=== PATIENT | male | born 1950 | race African-American/Black ===

== ENCOUNTER 2016-12-13 13:02 | Emergency (ER) | payer MEDICAID, OTHER ==
[~2016-12-13] VITALS: Ht 175.3 cm; Wt 60.0 kg
[~2016-12-13 13:02] MED LIST: NOVO7030P2 SQ
[2016-12-13 13:05] VITALS: BP 129/84; PULSE 111; RESP 17; TEMP 97.8; O2SAT 95
== END 2016-12-13 18:11 | disposition left against medical advice (07) ==
LOC: NETRI 13:02
DX: E11.9 Type 2 diabetes mellitus without complications (principal)
CPT/HCPCS: 99281

== ENCOUNTER 2017-04-01 12:52 | Observation (INO) | payer OTHER ==
[~2017-04-01] VITALS: Ht 177.8 cm; Wt 63.0 kg
[2017-04-01 12:54] VITALS: BP 127/71; PULSE 105; RESP 20; TEMP 98.2; O2SAT 100
--- NOTE | 2017-04-01 13:00 | PD ---
Physical Exam Time Seen by Provider: 12:56 Narrative 66 y/o male sent here by towel sewer for evaluation of abdominal pain, occasional left sided chest pain, weakness, decreased appetite for one month. Vital signs reviewed. Seen at triage desk. Awaiting bed placement. Data Data Last Documented VS Vital Signs Date Time Temp Pulse Resp B/P Pulse Ox O2 Delivery O2 Flow Rate FiO2 04/01/17 12:54 98.2 105 20 127/71 100 Room Air [facility] Medical Record Reviewed: Yes Supervised Visit with AMINTA: Justin Morales Apr 01, 2017 13:00
[2017-04-01] MEDS ORDERED: ATOR20TA15 PO (14:12)
[2017-04-01] MEDS ORDERED: NRDRIP ×2 (14:12)
[2017-04-01] MEDS ORDERED: INSU100V2 SQ (14:12)
[2017-04-01] MEDS ORDERED: GABA300C5 PO (14:12)
[2017-04-01] MEDS ORDERED: HYDR-3366 PO (14:12)
[2017-04-01] MEDS ORDERED: BACL10TA PO (14:12)
[2017-04-01] MEDS ORDERED: [UNRECOGNIZED DRUG - REMARK] (14:12)
[2017-04-01] MEDS ORDERED: SODIUM CHLORIDE 0.9% FLUSH 10 ML FLUSH IVF PRN (14:45)
[2017-04-01] MEDS ORDERED: ONDANSETRON HCL 4 MG/2 ML VIAL IV PUSH ONE (14:45)
[2017-04-01] MEDS ORDERED: SODIUM CHLOR 0.9% 1000 ML INJ 1,000 ML IV ONE (14:45)
--- NOTE | 2017-04-01 14:57 | PD ---
HPI Chief Complaint: Abdominal Pain Time Seen by Provider: 13:59 Travel History International Travel<30 days: No Contact w/Intl Traveler<30days: No Traveled to known affect area: No History of Present Illness HPI Patient is a 66-year-old male with history of DM, hyperlipidemia, who was sent to the emergency room by his compatibility test engineer, Dr. Hendricks for evaluation of multiple complaints. As per patient, he has not been feeling well for the past few months. Reports that for the past few months, she has been having increased chest pain. Reports that chest pain feels like a sharp and stabbing pain, reports that the pain goes from his left back and radiates to the front of his chest. Reports that when he has to symptoms, he feels short of breath and diaphoretic. Reports that symptoms last for a few seconds and then resolves on its own. Patient reports that he has not have chest pain at this time, reports that he did have CP a few seconds before I evaluated him. Patient also reports that he has been having abdominal pain for the past few months. Reports that he has been feeling nauseous and has been vomiting intermittently, reports that the pain is located to her lower abdomen. Patient reports that he has had decreased oral intake over the past few months and has been losing weight. Denies any recent travels/trips. PFSH Past Medical History Cardiovascular Problems: Yes (HTN) Congestive Heart Failure: Yes ( ) Diabetes: Yes Patient Takes Glucophage: No Diminished Hearing: No Hypertension: Yes Musculoskeletal: Yes (NEUROPATHY, CHRONIC BACK AND RIGHT KNEE PAIN) Neurologic: Yes (NEUROPATHY) Respiratory: Yes (INFECTION A MONTH AGO) Immunizations Current: Yes Past Surgical History Other Surgery: Yes (VASECTOMY) Social History Alcohol Use: Yes Tobacco Use: No Substance Use: Yes (none since November) Allergies-Medications (Allergen,Severity, Reaction): Coded Allergies: No Known Allergies (Verified , 04/01/17) Reported Meds & Prescriptions Reported Meds & Active Scripts Active Reported [unk prostate] DAILY Novolin R Inj (Insulin Human Regular) 100 Unit/Ml Inj 10 HS Novolin R Inj (Insulin Human Regular) 100 Unit/Ml Inj 20 DAILY Humulin R Inj (Insulin Human Regular) 1,000 Unit/10 Ml Vial Unknown Dose SQ ONCE Gabapentin 300 Mg Cap 300 Mg PO BID [place] (Hydrocodone-Acetaminophen) 10-325 Mg Tab 1 Tab PO Q4H PRN Baclofen 10 Mg Tab 10 Mg PO HS PRN Atorvastatin (Atorvastatin Calcium) 20 Mg Tab 20 Mg PO HS Review of Systems General / Constitutional: No: Fever Eyes: No: Visual changes HENT: No: Headaches Cardiovascular: Positive: Chest Pain or Discomfort, Diaphoresis Respiratory: Positive: Shortness of Breath Gastrointestinal: Positive: Nausea, Vomiting, Abdominal Pain, Loss of Appetite Genitourinary: No: Dysuria Musculoskeletal: No: Pain Skin: No Rash Neurologic: No: Weakness Psychiatric: No: Depression Endocrine: No: Polydipsia Hematologic/Lymphatic: No: Easy Bruising Physical Exam Narrative GENERAL: mild distress SKIN: Focused skin assessment warm/dry. HEAD: Atraumatic. Normocephalic. EYES: Pupils equal and round. No scleral icterus. No injection or drainage. ENT: No nasal bleeding or discharge. Mucous membranes pink and moist. NECK: Trachea midline. No JVD. CARDIOVASCULAR: Regular rate and rhythm. No murmur appreciated. RESPIRATORY: No accessory muscle use. Clear to auscultation. Breath sounds equal bilaterally. GASTROINTESTINAL: Abdomen soft,diffuse abdominal pain, nondistended. Hepatic and splenic margins not palpable. MUSCULOSKELETAL: No obvious deformities. No clubbing. No cyanosis. No edema. NEUROLOGICAL: Awake and alert. No obvious cranial nerve deficits. Motor grossly within normal limits. Normal speech. PSYCHIATRIC: Appropriate mood and affect; insight and judgment normal. Data Data Last Documented VS Vital Signs Date Time Temp Pulse Resp B/P Pulse Ox O2 Delivery O2 Flow Rate FiO2 04/01/17 12:54 98.2 105 20 127/71 100 Room Air Orders Electrocardiogram (04/01/17 14:36) B-Type Natriuretic Peptide (04/01/17 14:36) Ckmb (Isoenzyme) Profile (04/01/17 14:36) Complete Blood Count With Diff (04/01/17 14:36) Comprehensive Metabolic Panel (04/01/17 14:36) Magnesium (Mg) (04/01/17 14:36) Prothrombin Time / Inr (Pt) (04/01/17 14:36) Act Partial Throm Time (Ptt) (04/01/17 14:36) Troponin I (04/01/17 14:36) Lipase (04/01/17 14:36) Chest, Single Ap (04/01/17 14:36) Ecg Monitoring (04/01/17 14:36) Bilateral Bp Monitoring (04/01/17 14:36) Iv Access Insert/Monitor (04/01/17 14:36) Oximetry (04/01/17 14:36) Sodium Chloride 0.9% Flush (Ns Flush) (04/01/17 14:45) Cta Thor Abd Aorta W Iv C W3d (04/01/17 14:36) Sodium Chlor 0.9% 1000 Ml Inj (Ns 1000 M (04/01/17 14:45) Ondansetron Inj (Zofran Inj) (04/01/17 14:45) Labs Laboratory Tests Test 04/01/17 14:50 White Blood Count 10.2 TH/MM3 Red Blood Count 4.38 MIL/MM3 Hemoglobin 13.0 GM/DL Hematocrit 38.2 % Mean Corpuscular Volume 87.1 FL Mean Corpuscular Hemoglobin 29.7 PG Mean Corpuscular Hemoglobin 34.1 % Concent Red Cell Distribution Width 12.4 % Platelet Count 211 TH/MM3 Mean Platelet Volume 8.7 FL Neutrophils (%) (Auto) 63.0 % Lymphocytes (%) (Auto) 27.8 % Monocytes (%) (Auto) 7.7 % Eosinophils (%) (Auto) 0.8 % Basophils (%) (Auto) 0.7 % Neutrophils # (Auto) 6.4 TH/MM3 Lymphocytes # (Auto) 2.8 TH/MM3 Monocytes # (Auto) 0.8 TH/MM3 Eosinophils # (Auto) 0.1 TH/MM3 Basophils # (Auto) 0.1 TH/MM3 CBC Comment DIFF FINAL Differential Comment Prothrombin Time 10.1 SEC Prothromb Time International 0.9 RATIO Ratio Activated Partial 23.2 SEC Thromboplast Time Sodium Level 139 MEQ/L Potassium Level 4.1 MEQ/L Chloride Level 104 MEQ/L Carbon Dioxide Level 30.3 MEQ/L Anion Gap 5 MEQ/L Blood Urea Nitrogen 12 MG/DL Creatinine 0.92 MG/DL Estimat Glomerular Filtration 100 ML/MIN Rate Random Glucose 108 MG/DL Calcium Level 9.5 MG/DL Magnesium Level 2.0 MG/DL Total Bilirubin 0.5 MG/DL Aspartate Amino Transf 19 U/L (AST/SGOT) Alanine Aminotransferase 25 U/L (ALT/SGPT) Alkaline Phosphatase 78 U/L Total Creatine Kinase 88 U/L Troponin I LESS THAN 0.02 NG/ML B-Type Natriuretic Peptide 10 PG/ML Total Protein 7.1 GM/DL Albumin 3.6 GM/DL Lipase 89 U/L MDM Medical Decision Making Medical Screen Exam Complete: Yes Emergency Medical Condition: Yes Interpretation(s) EKG at 1451: NSR at 75bpm, qt/qtc: 389/418, no acute st or t wave changes Vital Signs Date Time Temp Pulse Resp B/P Pulse Ox O2 Delivery O2 Flow Rate FiO2 04/01/17 12:54 98.2 105 20 127/71 100 Room Air Differential Diagnosis Differential includes arrhythmia, ACS, aortic dissection, pe, electrolyte abnormality, tumor, gastroenteritis, gastritis, cholecystitis, appendicitis Narrative Course Patient is a 66-year-old male who was sent to the emergency room for evaluation of multiple complaints. Patient reports that he has been having intermittent chest pain for the past few months, chest pain is sharp and stabbing in nature, patient reports that his chest pain radiates from the back to the front of his left chest. Patient was placed on a cardiac sonographer upon arrival to emergency room. Lab work including cardiac enzymes ordered. X-ray chest ordered. Patient with no chest pain at this time.. We'll monitor. Patient also with abdominal pain for the past few months with decreased by mouth intake. On evaluation, patient has diffuse abdominal pain. Plan to obtain the chest, abdomen and pelvis to evaluate for dissection and to further evaluate abdominal pathology. Plan to give IV hydration and antiemetics this time. care signed out to dr finch at change of shift Claire Braga DO Apr 01, 2017 14:57
[2017-04-01 15:10] LABS: AUTOMATED NEUTROPHIL # 6.4 TH/MM3 (1.8-7.7); BASOPHIL # 0.1 TH/MM3 (0-0.2); BASOPHIL % 0.7 % (0.0-2.0); EOSINOPHIL # 0.1 TH/MM3 (0-0.4); EOSINOPHIL % 0.8 % (0.0-4.0); HEMATOCRIT 38.2 % (39.0-51.0); HEMO FLAGS DIFF FINAL; LYMPH % 27.8 % (9.0-44.0); LYMPHOCYTE # 2.8 TH/MM3 (1.0-4.8); MEAN CELL VOLUME 87.1 FL (80.0-100.0); MEAN CORPUSCULAR HEMOGLOBIN 29.7 PG (27.0-34.0); MEAN CORPUSCULAR HGB CONC 34.1 % (32.0-36.0); MONO % 7.7 % (0.0-8.0); PLATELET COUNT 211 TH/MM3 (150-450); RED BLOOD COUNT 4.38 MIL/MM3 (4.50-5.90); RED CELL DISTRIBUTION WIDTH 12.4 % (11.6-17.2); WHITE BLOOD COUNT 10.2 TH/MM3 (4.0-11.0)
[2017-04-01 15:15] LABS: APTT (PATIENT) 23.2 SEC (24.3-30.1); INTERNATIONAL NORMALIZED RATIO 0.9 RATIO; PROTHROMBIN TIME - PATIENT 10.1 SEC (9.8-11.6)
[2017-04-01 15:28] LABS: ALT (GPT) 25 U/L (12-78); ANION GAP 5 MEQ/L (5-15); AST (GOT) 19 U/L (15-37); BICARBONATE 30.3 MEQ/L (21.0-32.0); BLOOD UREA NITROGEN 12 MG/DL (7-18); CHLORIDE 104 MEQ/L (98-107); GLOMERULAR FILTRATION RATE 100 ML/MIN (>89); POTASSIUM 4.1 MEQ/L (3.5-5.1); SODIUM (NA) 139 MEQ/L (136-145)
[2017-04-01 15:32] LABS: ALKALINE PHOSPHATASE 78 U/L (45-117); TOTAL BILIRUBIN ADULT 0.5 MG/DL (0.2-1.0)
--- NOTE | 2017-04-01 15:37 | RADRPT ---
EXAM DATE/TIME: 04/01/2017 14:35 [facility] COMPARISON: CHEST SINGLE AP, July 29, 2015, 15:27. INDICATIONS : Intermittant chest and abdomen pain. MEDICAL HISTORY : None. SURGICAL HISTORY : None. ENCOUNTER: Initial ACUITY: 2 months PAIN SCORE: 10/10 LOCATION: Bilateral chest FINDINGS: A single view of the chest demonstrates the lungs to be symmetrically aerated without evidence of mas s, infiltrate or effusion. The cardiomediastinal contours are unremarkable. Osseous structures are intact. CONCLUSION: 1. No acute cardiopulmonary disease. Artur Melgar MD on April 01, 2017 at 15:34 Board Certified Radiologist. This report was verified electronically.
[2017-04-01 15:45] LABS: CREATINE KINASE 88 U/L (39-308)
[2017-04-01 17:04] VITALS: BP_SYST 174; BP_SYST 180; BP_DIAS 82; BP_DIAS 90; PULSE 84; RESP 20; O2SAT 100
[2017-04-01] MEDS ORDERED: IOHEXOL 350 MG/ML 10 ML VIAL (for RAD DIAG) IV ONE (17:07)
--- NOTE | 2017-04-01 17:20 | PD ---
Physical Exam Narrative Received sign out from Dr. Braga to follow up CT and if negative, admit to chest pain center for further evaluation of chest pain. 66yo M with PMH of DM here with multiple complaints. Pt with very atypical chest pain that is intermittent and lasts for few seconds at a time. Pt also with diffuse abdominal pain but is stating he is hungry and wants to eat. Pt does not have a airport planner and have not had this chest pain worked up before. CXR negative. CTA showed no aneurysm or dissection. Unremarkable CT chest, abdomen and pelvis. Labs reviewed, no leukocytosis. Troponin negative. BNP 10. Pt given morphine and aspirin. Pt reevaluated at bedside. States abdominal pain has resolved. Abdomen is soft , NT/ND. Pt is requesting food. States chest pain is intermittent and currently does not have any chest pain. Pt to be admitted to chest pain center for serial EKG and cardiac enzymes. Data Data Last Documented VS Vital Signs Date Time Temp Pulse Resp B/P Pulse Ox O2 Delivery O2 Flow Rate FiO2 04/01/17 17:04 84 20 174/90 100 Room Air 180/82 04/01/17 12:54 98.2 Orders Electrocardiogram (04/01/17 14:36) B-Type Natriuretic Peptide (04/01/17 14:36) Ckmb (Isoenzyme) Profile (04/01/17 14:36) Complete Blood Count With Diff (04/01/17 14:36) Comprehensive Metabolic Panel (04/01/17 14:36) Magnesium (Mg) (04/01/17 14:36) Prothrombin Time / Inr (Pt) (04/01/17 14:36) Act Partial Throm Time (Ptt) (04/01/17 14:36) Troponin I (04/01/17 14:36) Lipase (04/01/17 14:36) Chest, Single Ap (04/01/17 14:36) Ecg Monitoring (04/01/17 14:36) Bilateral Bp Monitoring (04/01/17 14:36) Iv Access Insert/Monitor (04/01/17 14:36) Oximetry (04/01/17 14:36) Sodium Chloride 0.9% Flush (Ns Flush) (04/01/17 14:45) Cta Thor Abd Aorta W Iv C W3d (04/01/17 14:36) Sodium Chlor 0.9% 1000 Ml Inj (Ns 1000 M (04/01/17 14:45) Ondansetron Inj (Zofran Inj) (04/01/17 14:45) Iohexol 350 Inj (Omnipaque 350 Inj) (04/01/17 17:07) Aspirin (Aspirin) (04/01/17 18:30) Morphine Inj (Morphine Inj) (04/01/17 18:30) Morphine Inj (Morphine Inj) (04/01/17 18:30) Labs Laboratory Tests Test 04/01/17 14:50 White Blood Count 10.2 TH/MM3 Red Blood Count 4.38 MIL/MM3 Hemoglobin 13.0 GM/DL Hematocrit 38.2 % Mean Corpuscular Volume 87.1 FL Mean Corpuscular Hemoglobin 29.7 PG Mean Corpuscular Hemoglobin 34.1 % Concent Red Cell Distribution Width 12.4 % Platelet Count 211 TH/MM3 Mean Platelet Volume 8.7 FL Neutrophils (%) (Auto) 63.0 % Lymphocytes (%) (Auto) 27.8 % Monocytes (%) (Auto) 7.7 % Eosinophils (%) (Auto) 0.8 % Basophils (%) (Auto) 0.7 % Neutrophils # (Auto) 6.4 TH/MM3 Lymphocytes # (Auto) 2.8 TH/MM3 Monocytes # (Auto) 0.8 TH/MM3 Eosinophils # (Auto) 0.1 TH/MM3 Basophils # (Auto) 0.1 TH/MM3 CBC Comment DIFF FINAL Differential Comment Prothrombin Time 10.1 SEC Prothromb Time International 0.9 RATIO Ratio Activated Partial 23.2 SEC Thromboplast Time Sodium Level 139 MEQ/L Potassium Level 4.1 MEQ/L Chloride Level 104 MEQ/L Carbon Dioxide Level 30.3 MEQ/L Anion Gap 5 MEQ/L Blood Urea Nitrogen 12 MG/DL Creatinine 0.92 MG/DL Estimat Glomerular Filtration 100 ML/MIN Rate Random Glucose 108 MG/DL Calcium Level 9.5 MG/DL Magnesium Level 2.0 MG/DL Total Bilirubin 0.5 MG/DL Aspartate Amino Transf 19 U/L (AST/SGOT) Alanine Aminotransferase 25 U/L (ALT/SGPT) Alkaline Phosphatase 78 U/L Total Creatine Kinase 88 U/L Troponin I LESS THAN 0.02 NG/ML B-Type Natriuretic Peptide 10 PG/ML Total Protein 7.1 GM/DL Albumin 3.6 GM/DL Lipase 89 U/L [facility] Supervised Visit with AMINTA: No Diagnosis Primary Impression: Chest pain Qualified Code: R07.9 - Chest pain, unspecified type Admitting Information Admitting Physician Requests: Mitzy Ríos DO Apr 01, 2017 17:20
--- NOTE | 2017-04-01 17:28 | RADRPT ---
EXAM DATE/TIME: 04/01/2017 16:46 [facility] COMPARISON: No previous studies available for comparison. INDICATIONS : Left sided chest pain, evaluate for aortic dissection. IV CONTRAST: 78 cc Omnipaque 350 (iohexol) IV RADIATION DOSE: 22.30 CTDIvol (mGy) MEDICAL HISTORY : Cardiovascular disease. Diabetes mellitus type 1. Hypertension. SURGICAL HISTORY : None. ENCOUNTER: Initial ACUITY: 2 days PAIN SCALE: 6/10 LOCATION: Left chest TECHNIQUE: Volumetric scanning was performed using a multi-row detector CT scanner. The data was post processed with a variety of visualization algorithms including full volume maximum intensity projection, multi -planar sliding thin slab reformation, curved planar reformation, and surface rendering techniques. Using automated exposure control and adjustment of the mA and/or kV according to patient size, radiat ion dose was kept as low as reasonably achievable to obtain optimal diagnostic quality images. DICOM format image data is available electronically for review and comparison. FINDINGS: LUNGS: There is no consolidation or pneumothorax. No concerning pulmonary nodule is visualized. No pleural fluid is present. MEDIASTINUM: No abnormally enlarged lymph nodes by CT criteria. No axillary or hilar abnormalities are identified. ABDOMEN: The liver and spleen are free of focal defects. The gallbladder and pancreas demonstrate no abnormali ty. The adrenal glands are normal. The kidneys demonstrate no evidence of solid renal mass or hydrone phrosis. No free fluid or abdominal masses are identified. No para-aortic adenopathy is seen. PELVIS: No evidence of free fluid or pelvic mass. No abnormally enlarged inguinal or retroperitoneal lymph no marley are present. The bladder is unremarkable. THORACIC AORTA: Thoracic aorta is normal in caliber without evidence for dissection or aneurysm. There is a variant a [facility] anatomy with direct origin of the left vertebral artery from the aorta. The central pulmonary art eries are patent. ABDOMINAL AORTA: The aorta is normal in caliber without aneurysm or dissection. The renal arteries are patent bilater ally. The proximal celiac and superior mesenteric arteries are patent and normal in diameter. Ther e is variant anatomy with right hepatic artery arising from the SMA. PELVIC VESSELS: The internal iliac and external iliac vessels are patent without aneurysm or stenosis. CONCLUSION: 1. Normal caliber aorta without evidence for aneurysm or dissection as questioned. 2. Patent central pulmonary arteries. 3. Unremarkable CT examination of the chest, abdomen, and pelvis. Artur Melgar MD on April 01, 2017 at 17:19 Board Certified Radiologist. This report was verified electronically.
[2017-04-01] MEDS ORDERED: MORPHINE SULFATE 8 MG/ML INJ IV PUSH ONE (18:30)
[2017-04-01] MEDS ORDERED: MORPHINE SULFATE 4 MG/ML INJ IV PUSH ONE (18:30)
[2017-04-01] MEDS ORDERED: ASPIRIN 325 MG TAB PO ONE (18:30)
[2017-04-01 19:52] VITALS: BP 161/92; PULSE 83; RESP 20; O2SAT 100; O2SAT 99
[2017-04-01 20:50] VITALS: BP 162/99; PULSE 83; RESP 18; TEMP 98.6; O2SAT 100
[2017-04-01 20:55] LABS: CREATINE KINASE 84 U/L (39-308)
[2017-04-01] MEDS: SODIUM CHLORIDE 0.9% FLUSH 10 ML FLUSH IV FLUSH SCH (21:37)
[2017-04-01] MEDS: SODIUM CHLORIDE 0.9% FLUSH 10 ML FLUSH IV FLUSH PRN ×2 (21:38→23:27)
[2017-04-01] MEDS ORDERED: ACETAMINOPHEN 500 MG CPLT PO PRN (23:30)
[2017-04-01] MEDS ORDERED: ONDANSETRON HCL 4 MG/2 ML VIAL IV PRN (23:30)
[2017-04-01] MEDS ORDERED: MORPHINE SULFATE 8 MG/ML INJ IV PUSH PRN (23:30)
[2017-04-01 23:40] VITALS: PULSE 88
[2017-04-01 23:59] LABS: CREATINE KINASE 86 U/L (39-308)
[2017-04-02 01:06] VITALS: BP 148/74; PULSE 83; RESP 17; TEMP 98.5; O2SAT 99
[2017-04-02 05:21] VITALS: BP 166/92; PULSE 90; RESP 17; TEMP 97.9; O2SAT 100
[2017-04-02 07:51] VITALS: BP 149/95; PULSE 88; RESP 18; TEMP 97.4; O2SAT 100
[2017-04-02] MEDS ORDERED: cloNIDine HCL 0.1 MG TAB PO PRN (08:00)
[2017-04-02] MEDS ORDERED: BACLOFEN 10 MG TAB PO PRN (08:00)
[2017-04-02] MEDS ORDERED: ACETAMINOPHEN/HYDROcodone 325 MG/10 MG TAB PO PRN (08:00)
[2017-04-02] MEDS: SODIUM CHLORIDE 0.9% FLUSH 10 ML FLUSH IV FLUSH SCH (08:19)
[2017-04-02] MEDS ORDERED: GABAPENTIN 300 MG CAP PO SCH (09:00)
[2017-04-02] MEDS ORDERED: DEXTROSE 50% IN WATER 50 ML VIAL(D50) IV PRN (09:00)
[2017-04-02] MEDS ORDERED: GLUCAGON 1 MG/ML VIAL IM/SQ PRN (09:00)
--- NOTE | 2017-04-02 09:05 | TR ---
Date Performed: 04/02/2017 Time Performed: 08:33:24 DOCTOR: Gera Lamar DRUG LIST: CLINICAL HISTORY: CHEST PAIN REASON FOR TEST: REASON FOR ENDING: OBSERVATION: CONCLUSION: SHRAVAN PROTOCOL ETT. NO CP OR SOB. TEST STOPPED AFTER EXCEEDING GOAL HR SECONDARY TO CHRONIC BACK PAIN.Maximum UB=107 % Max HR Achieved=95.0% Maximum IM=357/84 Total Exercise Time=6:12 COMMENTS: Conclusion: Normal treadmill exercise. No evidence of ischemia.
--- NOTE | 2017-04-02 09:15 | HHI.HP ---
[facility] Primary Care Physician Salvador Cabezas MD Chief Complaint Chest pain History of Present Illness This is a 66-year-old male that presents to the ED via private vehicle complaining of chest pain, abdominal pain, and low back pain. His chest abdominal pain he states been intermittent for 2 months. When it occurs it last about 20 seconds. He times little short of breath, nauseous, diaphoretic but states that it is rare. He saw nothing to bring on the discomforts. He states he works out at the gym twice a week lifting weights and also doing the treadmill and never has a discomfort while doing that. He states he walks daily for at least a mild to 2 miles without any issues. He states he abdominal pain in the chest pain feels similar to his neuropathy feels in his legs. Denies prior cardiac workup. Denies recent illness. Review of Systems General: Patient denies fevers, chills recent, and recent travel HEENT: Patient denies headache, sore throat, difficulty swallowing. Cardiovascular: Has the chest discomfort as mentioned above. Denies sensation of heart beating rapidly or irregularly. No syncope. Occasional diaphoresis. Respiratory: Occasional shortness of breath. Denies inspirational chest discomfort. Denies coughing wheezing or hemoptysis. GI: Occasional nausea. Complains of a generalized abdominal pain that feels like a neuropathy that he gets in his legs. Patient denies vomiting, diarrhea, and bloody stools. Musculoskeletal: Patient denies joint pain or edema. Denies calf pain or edema. Complains of chronic low back pain. Neurovascular: Patient denies numbness, tingling, weakness in extremities. Denies headache. Endocrine: Denies polyuria and polydipsia. Hematologic: Denies easy bruising. Skin: Denies rash or itching. Past Family Social History Allergies: Coded Allergies: No Known Allergies (Verified , 04/01/17) Past Medical History Diabetes, hyperlipidemia, neuropathy in his legs, chronic back pain. History of substance abuse but states he's been sober of alcohol and cocaine 3 months. Denies hypertension and known CAD. Past Surgical History Noncontributory. Reported Medications Reported Meds & Active Scripts Active Reported [unk prostate] DAILY Novolin R Inj (Insulin Human Regular) 100 Unit/Ml Inj 10 HS Novolin R Inj (Insulin Human Regular) 100 Unit/Ml Inj 20 DAILY Humulin R Inj (Insulin Human Regular) 1,000 Unit/10 Ml Vial Unknown Dose SQ ONCE Gabapentin 300 Mg Cap 300 Mg PO BID [place] (Hydrocodone-Acetaminophen) 10-325 Mg Tab 1 Tab PO Q4H PRN Baclofen 10 Mg Tab 10 Mg PO HS PRN Atorvastatin (Atorvastatin Calcium) 20 Mg Tab 20 Mg PO HS Active Ordered Medications Current Medications Medications (Trade) Dose Ordered Sig/Esteban Route Start Time Stop Time Status Last Admin (NS Flush) 2 ml UNSCH PRN IV FLUSH 04/01/17 19:00 04/01/17 23:27 (NS Flush) 2 ml BID IV FLUSH 04/01/17 21:00 04/02/17 08:19 (Tylenol) 500 mg Q4H PRN PO 04/01/17 23:30 (Zofran Inj) 4 mg Q6H PRN IV 04/01/17 23:30 (Morphine Inj) 2 mg Q4H PRN IV PUSH 04/01/17 23:30 04/01/17 23:26 (Catapres) 0.1 mg Q4H PRN PO 04/02/17 08:00 04/02/17 08:18 (Lipitor) 20 mg HS PO 04/02/17 21:00 (Lioresal) 10 mg HS PRN PO 04/02/17 08:00 (Neurontin) 300 mg BID PO 04/02/17 09:00 ([place] 10-325 Mg) 1 tab Q4H PRN PO 04/02/17 08:00 (D50w (Vial) Inj) 25 ml UNSCH PRN IV 04/02/17 09:00 (Glucagon Inj) 1 mg UNSCH PRN IM/SQ 04/02/17 09:00 Family History Denies family history of CAD. Social History Patient quit smoking 3 months ago but prior that he smoked one pack of cigarettes daily for 10 years. He states he's had no alcohol or cocaine in 3 months. Physical Exam Vital Signs Vital Signs Date Time Temp Pulse Resp B/P Pulse Ox O2 Delivery O2 Flow Rate FiO2 04/02/17 07:51 97.4 88 18 149/95 100 04/02/17 05:21 97.9 90 17 166/92 100 04/02/17 01:06 98.5 83 17 148/74 99 04/01/17 23:40 88 04/01/17 20:50 98.6 83 18 162/99 100 04/01/17 19:52 99 21 04/01/17 19:52 83 20 161/92 100 04/01/17 17:04 84 20 174/90 100 Room Air 180/82 04/01/17 12:54 98.2 105 20 127/71 100 Room Air Physical Exam GENERAL: This is a well-nourished, well-developed patient, in no apparent distress. Patient speaks in clear complete sentences. Patient is pleasant. HEENT: Head is atraumatic and normocephalic. Neck is supple without lymphadenopathy and trachea is midline. No JVD or carotid bruits. CARDIOVASCULAR: Regular rate and rhythm without murmurs, gallops, or rubs. RESPIRATORY: Clear to auscultation. Breath sounds equal bilaterally. No wheezes , rales, or rhonchi. Chest wall is tender reproducing the discomfort he has been having. No use of accessory muscles. GASTROINTESTINAL: Abdomen is nontender, nondistended. Abdomen soft. No obvious pulsatile mass or bruit. No CVA tenderness. Strong femoral pulses bilaterally. Normal bowel sounds in all quadrants. MUSCULOSKELETAL: Patient is moving upper and lower extremities freely. No calf tenderness or edema, no Homans sign. Strong pulses in upper and lower extremities. NEUROLOGICAL: Patient is alert and oriented. Cranial nerves 2-12 are grossly intact. No focal deficits and speech is clear. SKIN: No rash and turgor is normal. Laboratory Laboratory Tests Test 04/01/17 04/01/17 04/01/17 14:50 19:28 22:45 White Blood Count 10.2 Red Blood Count 4.38 Hemoglobin 13.0 Hematocrit 38.2 Mean Corpuscular Volume 87.1 Mean Corpuscular Hemoglobin 29.7 Mean Corpuscular Hemoglobin 34.1 Concent Red Cell Distribution Width 12.4 Platelet Count 211 Mean Platelet Volume 8.7 Neutrophils (%) (Auto) 63.0 Lymphocytes (%) (Auto) 27.8 Monocytes (%) (Auto) 7.7 Eosinophils (%) (Auto) 0.8 Basophils (%) (Auto) 0.7 Neutrophils # (Auto) 6.4 Lymphocytes # (Auto) 2.8 Monocytes # (Auto) 0.8 Eosinophils # (Auto) 0.1 Basophils # (Auto) 0.1 CBC Comment DIFF FINAL Differential Comment Prothrombin Time 10.1 Prothromb Time International 0.9 Ratio Activated Partial 23.2 Thromboplast Time Sodium Level 139 Potassium Level 4.1 Chloride Level 104 Carbon Dioxide Level 30.3 Anion Gap 5 Blood Urea Nitrogen 12 Creatinine 0.92 Estimat Glomerular Filtration 100 Rate Random Glucose 108 Calcium Level 9.5 Magnesium Level 2.0 Total Bilirubin 0.5 Aspartate Amino Transf 19 (AST/SGOT) Alanine Aminotransferase 25 (ALT/SGPT) Alkaline Phosphatase 78 Total Creatine Kinase 88 84 86 Troponin I LESS THAN 0.02 LESS THAN 0.02 LESS THAN 0.02 B-Type Natriuretic Peptide 10 Total Protein 7.1 Albumin 3.6 Lipase 89 Result Diagram: 04/01/17 1450 04/01/17 1450 Imaging Last Impressions Chest X-Ray 04/01/[id number] Signed Impressions: Service Date/Time: Saturday, April 01, 2017 14:35 - CONCLUSION: 1. No acute cardiopulmonary disease. Artur Melgar MD Aorta CTA [id number]/01/[id number] Signed Impressions: Service Date/Time: Saturday, April 01, 2017 16:46 - CONCLUSION: 1. Normal caliber aorta without evidence for aneurysm or dissection as questioned. 2. Patent central pulmonary arteries. 3. Unremarkable CT examination of the chest, abdomen, and pelvis. Artur Melgar MD Course EKGs have been sinus rhythm without significant ST segment depressions or elevations. Assessment and Plan Assessment and Plan * Atypical chest pain: Patient has had serial cardiac enzymes and EKGs for ruling out purposes. He has been seen by Dr. Lamar of cardiology in the chest pain center. He underwent a Trevor protocol ETT that was nonischemic and he will not be discharged home with instructions to follow-up with his primary care physician. * Diabetes: Continue his medications. Follow diabetic diet. We will add lisinopril as he has not been on an JOURDAN inhibitor. * Hyperlipidemia: Continue current medication. * Neuropathy: Continue current medication. * Can't back pain: Continue current medication. Patient is stable at this time. He is agreeable to this plan. Iban Archibald Apr 02, 2017 09:15
[2017-04-02] MEDS ORDERED: LISI-519 PO (09:16)
--- NOTE | 2017-04-02 09:16 | PD.CARD.PN ---
Subjective Subjective Remarks CARDIOLOGY ATTENDING NOTE S: 66 y/o male with hx of atypical CP, back pain, DM, neuropathy and past hx of tobacco and cocaine (clear now 3 mo) CP very atypical and not likely cardiac. O: Neck no JVD, mass or bruit Chest decreased BS but clear CV RSR without GRM EKGs negative for acute ischemia ETT negative A: Non cardiac CP DM Neuropathy P: Disch to FU with PCP Objective Vital Signs / I&O Vital Signs Date Time Temp Pulse Resp B/P Pulse Ox O2 Delivery O2 Flow Rate FiO2 04/02/17 07:51 97.4 88 18 149/95 100 04/02/17 05:21 97.9 90 17 166/92 100 04/02/17 01:06 98.5 83 17 148/74 99 04/01/17 23:40 88 04/01/17 20:50 98.6 83 18 162/99 100 04/01/17 19:52 99 21 04/01/17 19:52 83 20 161/92 100 04/01/17 17:04 84 20 174/90 100 Room Air 180/82 04/01/17 12:54 98.2 105 20 127/71 100 Room Air Laboratory Laboratory Tests Test 04/01/17 04/01/17 04/01/17 14:50 19:28 22:45 White Blood Count 10.2 TH/MM3 Red Blood Count 4.38 MIL/MM3 Hemoglobin 13.0 GM/DL Hematocrit 38.2 % Mean Corpuscular Volume 87.1 FL Mean Corpuscular Hemoglobin 29.7 PG Mean Corpuscular Hemoglobin 34.1 % Concent Red Cell Distribution Width 12.4 % Platelet Count 211 TH/MM3 Mean Platelet Volume 8.7 FL Neutrophils (%) (Auto) 63.0 % Lymphocytes (%) (Auto) 27.8 % Monocytes (%) (Auto) 7.7 % Eosinophils (%) (Auto) 0.8 % Basophils (%) (Auto) 0.7 % Neutrophils # (Auto) 6.4 TH/MM3 Lymphocytes # (Auto) 2.8 TH/MM3 Monocytes # (Auto) 0.8 TH/MM3 Eosinophils # (Auto) 0.1 TH/MM3 Basophils # (Auto) 0.1 TH/MM3 CBC Comment DIFF FINAL Differential Comment Prothrombin Time 10.1 SEC Prothromb Time International 0.9 RATIO Ratio Activated Partial 23.2 SEC Thromboplast Time Sodium Level 139 MEQ/L Potassium Level 4.1 MEQ/L Chloride Level 104 MEQ/L Carbon Dioxide Level 30.3 MEQ/L Anion Gap 5 MEQ/L Blood Urea Nitrogen 12 MG/DL Creatinine 0.92 MG/DL Estimat Glomerular Filtration 100 ML/MIN Rate Random Glucose 108 MG/DL Calcium Level 9.5 MG/DL Magnesium Level 2.0 MG/DL Total Bilirubin 0.5 MG/DL Aspartate Amino Transf 19 U/L (AST/SGOT) Alanine Aminotransferase 25 U/L (ALT/SGPT) Alkaline Phosphatase 78 U/L Total Creatine Kinase 88 U/L 84 U/L 86 U/L Troponin I LESS THAN 0.02 LESS THAN 0.02 LESS THAN 0.02 NG/ML NG/ML NG/ML B-Type Natriuretic Peptide 10 PG/ML Total Protein 7.1 GM/DL Albumin 3.6 GM/DL Lipase 89 U/L Gera Lamar MD Apr 02, 2017 09:16
--- NOTE | 2017-04-02 09:17 | HHI.DCPOC ---
Discharge Care Plan Diagnosis: (1) Chest pain, atypical (2) DM (diabetes mellitus) (3) Hyperlipidemia (4) Neuropathy (5) Chronic back pain Goals to Promote Your Health * To prevent worsening of your condition and complications * To maintain your health at the optimal level Directions to Meet Your Goals Take your medications as prescribed Follow your dietary instruction Follow activity as directed Keep your appointments as scheduled Take your immunizations and boosters as scheduled If your symptoms worsen call your PCP, if no PCP go to Urgent Care Center or Emergency Room Smoking is Dangerous to Your Health. Avoid second hand smoke Call the 24-hour hour crisis hotline for domestic abuse at [facility] Archibald Apr 02, 2017 09:17
[2017-04-02] MEDS ORDERED: INSULIN ASPART SUPPLEMENTAL SCALE SQ SCH (11:00)
--- NOTE | 2017-04-02 15:29 | EKG ---
Date Performed: 04/01/2017 Time Performed: 22:51:24 PTAGE: 66 years EKG: Sinus rhythm MARKED LEFT AXIS DEVIATION PATTERN CONSISTENT WITH PULMONARY DISEASE ABNORMAL ECG NO SIG CHANGE PREVIOUS TRACING : 04/01/2017 19.22 DOCTOR: Gera Lamar Interpretating Date/Time 04/02/2017 15:28:19
--- NOTE | 2017-04-02 15:32 | EKG ---
Date Performed: 04/01/2017 Time Performed: 14:51:59 PTAGE: 66 years EKG: Sinus rhythm MARKED LEFT AXIS DEVIATION PATTERN CONSISTENT WITH PULMONARY DISEASE ABNORMAL ECG PREVIOUS TRACING : 05/11/2016 23.00 DOCTOR: Gera Lamar Interpretating Date/Time 04/02/2017 15:30:28
--- NOTE | 2017-04-02 15:32 | EKG ---
Date Performed: 04/01/2017 Time Performed: 19:22:28 PTAGE: 66 years EKG: Sinus rhythm MARKED LEFT AXIS DEVIATION PATTERN CONSISTENT WITH PULMONARY DISEASE ABNORMAL ECG NO SIG CHANGE PREVIOUS TRACING : 04/01/2017 14.51 DOCTOR: Gera Lamar Interpretating Date/Time 04/02/2017 15:31:07
[2017-04-02] MEDS ORDERED: ATORVASTATIN 20 MG TAB PO SCH (21:00)
== END 2017-04-02 09:47 | disposition home or self-care (01) ==
LOC: NEPD 12:52 → NEDA 18:52 → NEPHCDU 20:03
PROVIDERS: ADMIT Internal Medicine Cardiovascular Disease; ATTEND Internal Medicine Cardiovascular Disease
DX: R07.89 Other chest pain (principal); E11.9 Type 2 diabetes mellitus without complications; E78.5 Hyperlipidemia, unspecified; G62.9 Polyneuropathy, unspecified; M54.9 Dorsalgia, unspecified; M54.5 Low back pain; R10.9 Unspecified abdominal pain; R94.31 Abnormal electrocardiogram [ECG] [EKG]; Z79.4 Long term (current) use of insulin; Z79.899 Other long term (current) drug therapy
CPT/HCPCS: 71010; 71275; 74174; 80053; 82550; 83690; 83735; 83880; 84484; 85025; 85610; 85730; 93005; 93017; 96361; 96374; 96375; 99285; G0378; J2270; J2405; J7030; Q9967

== ENCOUNTER 2017-04-19 07:19 | Emergency (ER) | payer OTHER ==
[~2017-04-19] VITALS: Ht 177.8 cm; Wt 65.0 kg
[~2017-04-19 07:19] MED LIST changes: +ATOR20TA15 PO; +BACL10TA PO; +GABA300C5 PO; +HYDR-3366 PO; +INSU100V2 SQ; +LISI-519 PO; -NOVO7030P2 SQ; +NRDRIP; +[UNRECOGNIZED DRUG - REMARK]
[2017-04-19 07:20] VITALS: BP 160/99; PULSE 99; RESP 18; TEMP 98.5; O2SAT 100
--- NOTE | 2017-04-19 07:52 | PD ---
HPI Chief Complaint: Chest Pain Time Seen by Provider: 07:31 Travel History International Travel<30 days: No Contact w/Intl Traveler<30days: No Traveled to known affect area: No History of Present Illness HPI 66yo M with PMH of DM, chronic back pain on narco, follows with Dr. Espinal from pain management here with c/o left sided chest pain for months. Pt states pain is sharp and on exam, is more left ribs. Denies any sob, fever, n/v, abdominal pain, focal weakness or numbness. Pt states he did not take his narco today because he was rushing out of the house. Pt was just admitted in chest pain center and seen by jammer operator Dr. Lamar for atypical chest pain on 04/01/17. Had cardiac stress test and negative CT angio. Pt uses a cane because of his back pain. Denies any recent cocaine use. States he has followed up with PMD and is scheduling for outpatient cardiology work up. PFSH Past Medical History Heart Rhythm Problems: No Cardiac Catheterization: No Cardiovascular Problems: Yes (HTN) High Cholesterol: Yes Congestive Heart Failure: No Diabetes: Yes Patient Takes Glucophage: No Diminished Hearing: No Hypertension: Yes Musculoskeletal: Yes (NEUROPATHY, CHRONIC BACK AND RIGHT KNEE PAIN) Neurologic: Yes (NEUROPATHY) Respiratory: Yes (INFECTION A MONTH AGO) Immunizations Current: Yes Past Surgical History Coronary Artery Bypass Graft: No Other Surgery: Yes (VASECTOMY) Social History Alcohol Use: No Tobacco Use: No Substance Use: No (none since November) Allergies-Medications (Allergen,Severity, Reaction): Coded Allergies: No Known Allergies (Verified , 04/19/17) Reported Meds & Prescriptions Reported Meds & Active Scripts Active Lisinopril 5 Mg Tab 5 Mg PO DAILY Reported Novolin R Inj (Insulin Human Regular) 100 Unit/Ml Inj 10 HS Novolin R Inj (Insulin Human Regular) 100 Unit/Ml Inj 20 DAILY Humulin R Inj (Insulin Human Regular) 1,000 Unit/10 Ml Vial Unknown Dose SQ ONCE Gabapentin 300 Mg Cap 300 Mg PO BID [place] (Hydrocodone-Acetaminophen) 10-325 Mg Tab 1 Tab PO Q4H PRN Baclofen 10 Mg Tab 10 Mg PO HS PRN Atorvastatin (Atorvastatin Calcium) 20 Mg Tab 20 Mg PO HS Review of Systems Except as stated in HPI: all other systems reviewed are Neg Physical Exam Narrative GENERAL: 66yo M in mild distress. SKIN: Focused skin assessment warm/dry. HEAD: Atraumatic. Normocephalic. EYES: Pupils equal and round. No scleral icterus. No injection or drainage. ENT: No nasal bleeding or discharge. Mucous membranes pink and moist. NECK: Trachea midline. No JVD. CARDIOVASCULAR: Regular rate and rhythm. No murmur appreciated. RESPIRATORY: No accessory muscle use. Clear to auscultation. Breath sounds equal bilaterally. GASTROINTESTINAL: Abdomen soft, non-tender, nondistended. No rebound tenderness or guarding. MUSCULOSKELETAL: Left lateral lower rib ttp. No ecchymoses. No crepitus. No obvious deformities. No clubbing. No cyanosis. No edema. NEUROLOGICAL: Awake and alert. No obvious cranial nerve deficits. Motor grossly within normal limits. Normal speech. PSYCHIATRIC: Appropriate mood and affect; insight and judgment normal. Data Data Last Documented VS Vital Signs Date Time Temp Pulse Resp B/P Pulse Ox O2 Delivery O2 Flow Rate FiO2 04/19/17 07:53 Nasal Cannula 2 04/19/17 07:53 72 20 166/88 04/19/17 07:53 98 04/19/17 07:20 98.5 Orders Basic Metabolic Panel (Bmp) (04/19/17 07:46) Complete Blood Count With Diff (04/19/17 07:46) Magnesium (Mg) (04/19/17 07:46) Prothrombin Time / Inr (Pt) (04/19/17 07:46) Act Partial Throm Time (Ptt) (04/19/17 07:46) Troponin I (04/19/17 07:46) Ecg Monitoring (04/19/17 07:46) Bilateral Bp Monitoring (04/19/17 07:46) Iv Access Insert/Monitor (04/19/17 07:46) Oximetry (04/19/17 07:46) Oxygen Administration (04/19/17 07:46) Ribs, Uni (W/Exp Cxr-Min 3vw) (04/19/17 ) Acetamin-Hydrocod 325-5 Mg (Wallace 5-325 (04/19/17 08:15) Labs Laboratory Tests Test 04/19/17 08:10 White Blood Count 11.0 TH/MM3 Red Blood Count 4.34 MIL/MM3 Hemoglobin 13.2 GM/DL Hematocrit 37.7 % Mean Corpuscular Volume 86.9 FL Mean Corpuscular Hemoglobin 30.5 PG Mean Corpuscular Hemoglobin 35.1 % Concent Red Cell Distribution Width 12.4 % Platelet Count 249 TH/MM3 Mean Platelet Volume 8.4 FL Neutrophils (%) (Auto) 70.9 % Lymphocytes (%) (Auto) 20.6 % Monocytes (%) (Auto) 6.9 % Eosinophils (%) (Auto) 1.1 % Basophils (%) (Auto) 0.5 % Neutrophils # (Auto) 7.8 TH/MM3 Lymphocytes # (Auto) 2.3 TH/MM3 Monocytes # (Auto) 0.8 TH/MM3 Eosinophils # (Auto) 0.1 TH/MM3 Basophils # (Auto) 0.1 TH/MM3 CBC Comment DIFF FINAL Differential Comment Prothrombin Time 10.1 SEC Prothromb Time International 0.9 RATIO Ratio Activated Partial 22.9 SEC Thromboplast Time Sodium Level 137 MEQ/L Potassium Level 3.9 MEQ/L Chloride Level 102 MEQ/L Carbon Dioxide Level 30.1 MEQ/L Anion Gap 5 MEQ/L Blood Urea Nitrogen 12 MG/DL Creatinine 0.92 MG/DL Estimat Glomerular Filtration 100 ML/MIN Rate Random Glucose 211 MG/DL Calcium Level 9.0 MG/DL Magnesium Level 1.9 MG/DL Troponin I LESS THAN 0.02 NG/ML [facility] Medical Decision Making Medical Screen Exam Complete: Yes Emergency Medical Condition: Yes Interpretation(s) EKG: NSR 89bpm. LAD. No ST segment elevation or depression. Differential Diagnosis Atypical chest pain vs. musculoskeletal pain vs. fracture vs. chronic back pain vs. malingering Narrative Course 66yo M with atypical chest pain that is more tender on left ribs. Pt was just seen in chest pain center earlier this month by Dr. Lamar and had a negative work up. Labs reviewed, no leukocytosis. Troponin negative. Glucose 211. No increased anion gap. CO2 normal. Xray left ribs with CXR showed no definite displaced rib fractures. Pt given lortab for his chronic back pain. Pt instructed to follow up with his pain management for his chronic pain and has narco at home so no pain medication will be prescribed. Return precautions given. Diagnosis Primary Impression: Chest pain, atypical Patient Instructions: General Instructions Departure Forms: Tests/Procedures Additional Instructions: Please follow up with your jammer operator as outpatient. Return to the ED if symptoms worsen. Med/Other Pt SpecificInfo: No Change to Meds Disposition: 01 DISCHARGE HOME Condition: Stable Mitzy Arguello DO Apr 19, 2017 07:52
[2017-04-19 07:53] VITALS: BP 166/88; PULSE 72; RESP 20; O2SAT 98
[2017-04-19] MEDS ORDERED: ACETAMINOPHEN/HYDROcodone 325 MG/5 MG TAB PO ONE (08:15)
[2017-04-19 08:22] LABS: AUTOMATED NEUTROPHIL # 7.8 TH/MM3 (1.8-7.7); BASOPHIL # 0.1 TH/MM3 (0-0.2); BASOPHIL % 0.5 % (0.0-2.0); EOSINOPHIL # 0.1 TH/MM3 (0-0.4); EOSINOPHIL % 1.1 % (0.0-4.0); HEMATOCRIT 37.7 % (39.0-51.0); HEMO FLAGS DIFF FINAL; LYMPH % 20.6 % (9.0-44.0); LYMPHOCYTE # 2.3 TH/MM3 (1.0-4.8); MEAN CELL VOLUME 86.9 FL (80.0-100.0); MEAN CORPUSCULAR HEMOGLOBIN 30.5 PG (27.0-34.0); MEAN CORPUSCULAR HGB CONC 35.1 % (32.0-36.0); MONO % 6.9 % (0.0-8.0); NEUT % 70.9 % (16.0-70.0); PLATELET COUNT 249 TH/MM3 (150-450); RED BLOOD COUNT 4.34 MIL/MM3 (4.50-5.90); RED CELL DISTRIBUTION WIDTH 12.4 % (11.6-17.2)
[2017-04-19 08:30] LABS: APTT (PATIENT) 22.9 SEC (24.3-30.1); INTERNATIONAL NORMALIZED RATIO 0.9 RATIO; PROTHROMBIN TIME - PATIENT 10.1 SEC (9.8-11.6)
[2017-04-19 08:37] LABS: ANION GAP 5 MEQ/L (5-15); BICARBONATE 30.1 MEQ/L (21.0-32.0); BLOOD UREA NITROGEN 12 MG/DL (7-18); CHLORIDE 102 MEQ/L (98-107); GLOMERULAR FILTRATION RATE 100 ML/MIN (>89); MAGNESIUM 1.9 MG/DL (1.5-2.5); POTASSIUM 3.9 MEQ/L (3.5-5.1); SODIUM (NA) 137 MEQ/L (136-145)
--- NOTE | 2017-04-19 09:20 | RADRPT ---
EXAM DATE/TIME: 04/19/2017 08:25 [facility] COMPARISON: No previous studies available for comparison. INDICATIONS : Pain below twelfth rib for two months, worsening over one week. MEDICAL HISTORY : None. SURGICAL HISTORY : None. ENCOUNTER: Initial ACUITY: 2 months PAIN SCORE: 8/10 LOCATION: Left abdomen, below twelfth rib. FINDINGS: No definite displaced rib fractures or pneumothorax is identified. CONCLUSION: No definite displaced rib fractures. Sharon López MD on April 19, 2017 at 9:08 Board Certified Radiologist. This report was verified electronically.
--- NOTE | 2017-04-19 13:22 | EKG ---
Date Performed: 04/19/2017 Time Performed: 07:34:30 PTAGE: 66 years EKG: Sinus rhythm MARKED LEFT AXIS DEVIATION ABNORMAL ECG No significant change from prior electrocardiogram. PREVIOUS TRACING : 04/01/2017 22.51 DOCTOR: Michael Summers Interpretating Date/Time 04/19/2017 13:21:52
== END 2017-04-19 09:52 | disposition home or self-care (01) ==
LOC: NEPE 07:19
DX: R07.89 Other chest pain (principal); M54.9 Dorsalgia, unspecified; I10 Essential (primary) hypertension; R94.31 Abnormal electrocardiogram [ECG] [EKG]; E11.9 Type 2 diabetes mellitus without complications; Z79.4 Long term (current) use of insulin
CPT/HCPCS: 71101; 80048; 83735; 84484; 85025; 85610; 85730; 93005; 99284

== ENCOUNTER 2017-06-17 02:44 | Emergency (ER) | payer OTHER ==
[~2017-06-17 02:44] MED LIST changes: -[UNRECOGNIZED DRUG - REMARK]
[2017-06-17 02:45] VITALS: BP 106/64; PULSE 115; RESP 16; TEMP 97.9; O2SAT 96
--- NOTE | 2017-06-17 03:17 | PD ---
HPI Chief Complaint: Abdominal Pain Time Seen by Provider: 03:13 Travel History International Travel<30 days: No Contact w/Intl Traveler<30days: No Traveled to known affect area: No History of Present Illness HPI The patient is a 66 year old male who presents to the [facility] emergency department with a history of chest pain and abdominal pain that has been coming and going for 6 months. He reports having a decreased appetite and weight. He has lost approximately 30lbs. He reports having early satiety. The pain is a tightening sensation with intermittent sharp pain. It worse with taking a deep breath. He denies having a colonoscopy or endoscopy in the past. He has had chronic constipation for 6 months. He can only move his bowels with using a laxative. He last moved his bowels on Saturday. He reports that he was recently evaluated and admitted to chest pain center with a negative stress test done in March for these symptoms along with a CTA of the aorta that was negative. The patient denies any history of fever, cough, congestion, neck pain, shortness of breath, diarrhea, dysuria, urinary urgency, or neurologic symptoms. He has had urinary frequency for the last 1 and 1/2 months that he thought was related to his blood sugar. PCP: appt. with new doctor on 06/24, Dr. Quintero. [facility] Past Medical History Narrative Medical The patient's past medical history is significant for high cholesterol, chronic neck and back pain, hypertension, diabetes mellitus. Heart Rhythm Problems: No Cardiac Catheterization: No Cardiovascular Problems: Yes (HTN) High Cholesterol: Yes Congestive Heart Failure: No Diabetes: Yes Patient Takes Glucophage: No Diminished Hearing: No Hypertension: Yes Musculoskeletal: Yes (NEUROPATHY, CHRONIC BACK AND RIGHT KNEE PAIN) Neurologic: Yes (NEUROPATHY) Respiratory: Yes (INFECTION A MONTH AGO) Immunizations Current: Yes ?: Not Past Surgical History Narrative Surgical The patient's past surgical history is significant for vasectomy. Coronary Artery Bypass Graft: No Other Surgery: Yes (VASECTOMY) Social History Alcohol Use: No Tobacco Use: No Substance Use: No (none since November) Allergies-Medications (Allergen,Severity, Reaction): Coded Allergies: No Known Allergies (Verified , 04/19/17) Reported Meds & Prescriptions Reported Meds & Active Scripts Active Reported Novolin R Inj (Insulin Human Regular) 100 Unit/Ml Inj 10 HS Novolin R Inj (Insulin Human Regular) 100 Unit/Ml Inj 20 DAILY Humulin R Inj (Insulin Human Regular) 1,000 Unit/10 Ml Vial Unknown Dose SQ ONCE [place] (Hydrocodone-Acetaminophen) 10-325 Mg Tab 1 Tab PO Q4H PRN Atorvastatin (Atorvastatin Calcium) 20 Mg Tab 20 Mg PO HS Review of Systems Except as stated in HPI: all other systems reviewed are Neg General / Constitutional: No: Fever Eyes: No: Visual changes HENT: No: Headaches Cardiovascular: Positive: Chest Pain or Discomfort, No: Dyspnea on exertion Respiratory: No: Shortness of Breath Gastrointestinal: Positive: Nausea, Abdominal Pain, Constipation, Changes in Bowel Habits, Indigestion, Loss of Appetite, No: Vomiting, Diarrhea, Hematemesis , Hematochezia Genitourinary: No: Dysuria Musculoskeletal: No: Pain Skin: No Rash Neurologic: No: Weakness Psychiatric: No: Depression Endocrine: No: Polydipsia Hematologic/Lymphatic: No: Easy Bruising Physical Exam Narrative General: The patient is a well-developed well-nourished male in no acute distress. Head and Neck exam: Head is normocephalic atraumatic. Eyes: EOMI, pupils are equal round and reactive to light. Nose: Midline septum with pink mucous membranes Mouth: Dentition unremarkable. Moist mucus membranes. Posterior oropharynx is not erythematous. No tonsillar hypertrophy. Uvula midline. Airway patent. Neck: No palpable lymphadenopathy. No nuchal rigidity. No thyromegaly. Cardiovascular: Regular rate and rhythm without murmurs, gallops, or rubs. Lungs: Clear to auscultation bilaterally. No wheezes, rhonchi, or rales. Abdomen: Soft, with reported midepigastric abdominal discomfort on palpation, no other tenderness on palpation of the other quadrants of the abdomen. Normal bowel sounds are audible. No tenderness on palpation of McBurney's point. No guarding, rebound, or rigidity. Negative Lopez's sign. Extremities: No clubbing, cyanosis, or edema. 2+ pulses in all 4 extremities. No calf tenderness on palpation. Back: No spinous process tenderness to palpation. No costovertebral angle tenderness to palpation. Neurologic Exam: Grossly nonfocal. Skin Exam: No rash noted. Intact skin that is warm and dry. Data Data Last Documented VS Vital Signs Date Time Temp Pulse Resp B/P (MAP) Pulse Ox O2 Delivery O2 Flow Rate FiO2 06/17/17 02:45 97.9 115 16 106/64 (78) 96 Room Air Orders Orders Electrocardiogram (06/17/17 03:14) Complete Blood Count With Diff (06/17/17 03:14) Comprehensive Metabolic Panel (06/17/17 03:14) Creatine Kinase (Cpk) (06/17/17 03:14) Ckmb (Isoenzyme) Profile (06/17/17 03:14) Troponin I (06/17/17 03:14) B-Type Natriuretic Peptide (06/17/17 03:14) Prothrombin Time / Inr (Pt) (06/17/17 03:14) Act Partial Throm Time (Ptt) (06/17/17 03:14) C-Reactive Protein (Crp) (06/17/17 03:14) Lipase (06/17/17 03:14) Urinalysis - C+S If Indicated (06/17/17 03:14) Magnesium (Mg) (06/17/17 03:14) Chest, Single Ap (06/17/17 03:14) Iv Access Insert/Monitor (06/17/17 03:14) Ecg Monitoring (06/17/17 03:14) Oximetry (06/17/17 03:14) Lactic Acid (06/17/17 03:14) CKMB (06/17/17 03:20) CKMB% (06/17/17 03:20) Ct Abd/Pel W Iv Contrast(Rout) (06/17/17 04:35) Sodium Chlor 0.9% 1000 Ml Inj (Ns 1000 M (06/17/17 05:00) Ondansetron Inj (Zofran Inj) (06/17/17 05:00) Pantoprazole Inj (Protonix Inj) (06/17/17 05:00) Iohexol 350 Inj (Omnipaque 350 Inj) (06/17/17 04:58) Labs Laboratory Tests Test 06/17/17 03:20 06/17/17 03:30 White Blood Count 9.1 TH/MM3 Red Blood Count 4.33 MIL/MM3 Hemoglobin 13.2 GM/DL Hematocrit 38.1 % Mean Corpuscular Volume 87.9 FL Mean Corpuscular Hemoglobin 30.4 PG Mean Corpuscular Hemoglobin Concent 34.6 % Red Cell Distribution Width 13.0 % Platelet Count 280 TH/MM3 Mean Platelet Volume 8.0 FL Neutrophils (%) (Auto) 62.5 % Lymphocytes (%) (Auto) 29.1 % Monocytes (%) (Auto) 7.4 % Eosinophils (%) (Auto) 0.6 % Basophils (%) (Auto) 0.4 % Neutrophils # (Auto) 5.7 TH/MM3 Lymphocytes # (Auto) 2.6 TH/MM3 Monocytes # (Auto) 0.7 TH/MM3 Eosinophils # (Auto) 0.1 TH/MM3 Basophils # (Auto) 0.0 TH/MM3 CBC Comment DIFF FINAL Differential Comment Prothrombin Time 10.2 SEC Prothromb Time International Ratio 0.9 RATIO Activated Partial Thromboplast Time 22.9 SEC Blood Urea Nitrogen 10 MG/DL Creatinine 0.91 MG/DL Random Glucose 89 MG/DL Total Protein 7.5 GM/DL Albumin 4.0 GM/DL Calcium Level 8.9 MG/DL Magnesium Level 2.1 MG/DL Alkaline Phosphatase 69 U/L Aspartate Amino Transf (AST/SGOT) 11 U/L Alanine Aminotransferase (ALT/SGPT) 19 U/L Total Bilirubin 0.6 MG/DL Sodium Level 139 MEQ/L Potassium Level 3.7 MEQ/L Chloride Level 104 MEQ/L Carbon Dioxide Level 30.6 MEQ/L Anion Gap 4 MEQ/L Estimat Glomerular Filtration Rate 102 ML/MIN Total Creatine Kinase 118 U/L Creatine Kinase MB 1.8 NG/ML Troponin I LESS THAN 0.02 NG/ML C-Reactive Protein LESS THAN 0.29 MG/DL B-Type Natriuretic Peptide 28 PG/ML Lipase 73 U/L Lactic Acid Level 1.4 mmol/L [facility] Medical Decision Making Medical Screen Exam Complete: Yes Emergency Medical Condition: Yes Medical Record Reviewed: Yes Interpretation(s) Last Impressions Abdomen/Pelvis CT 06/17/[id number] Signed Impressions: Service Date/Time: Saturday, June 17, 2017 04:57 - CONCLUSION: 1. No acute findings on abdomen and pelvic CT. Mild constipation. Garcia Green MD Chest X-Ray [id number]/[id number] Signed Impressions: Service Date/Time: Saturday, June 17, 2017 03:22 - CONCLUSION: 1. No acute findings. Skinfold on the left. Garcia Green MD Differential Diagnosis Peptic ulcer disease, versus pancreatitis, versus acid reflux, versus gastritis , versus occult mass Narrative Course During the course of the patients emergency department visit, the patients history, examination, and differential diagnosis were reviewed with the patient. The patient had IV access obtained and blood work sent for analysis. The patient was placed on a court monitor with oximetry and blood pressure monitoring. An ECG was done on arrival. The patient's ECG reveals sinus tachycardia rate of 108, no acute ST segment elevation or depression, left axis deviation is noted, QRS duration is 79 ms, QTC 402 ms. The patient was initially provided Protonix 40 mg IV, normal saline 1 L IV fluid bolus, Zofran 4 mg IV. The patients laboratory studies were reviewed and remarkable for a white count of 9.1, hemoglobin 13.2, platelets 280 with a normal differential, CMP is remarkable for an anion gap of 4, AST 11, BK 118, troponin I less than 0.02, C- reactive protein is less than 0.29, BNP is 28, lipase 73, lactic acid 1.4. PT PTT unremarkable Radiology studies were reviewed and remarkable for a chest x-ray that shows no acute cardiopulmonary disease. CT scan of the abdomen and pelvis shows no acute findings on the abdomen and pelvis CT, mild constipation. I did have a lengthy discussion with the patient regarding his symptoms and their chronicity. The patient has had a negative cardiac workup done recently in the chest pain center. The patient denies ever having endoscopy or colonoscopy. I suspect that the patient's symptoms are related to acid reflux, however given the weight loss the patient will need to undergo endoscopy and colonoscopy sooner rather than later. The patient will be discharged home to follow-up with a broadcast technician. The patient is given the name of the broadcast technician on-call, Dr. Lopez for follow-up. The patient additionally reports that he has an appointment with a new primary care physician scheduled for later this week. In the meantime, the patient will be discharged home with a prescription for Protonix. The patient is resting comfortably and feels better, is alert and in no distress. The patients results and examination findings were discussed with the patient. The repeat examination is unremarkable and benign. The history, exam, diagnostic testing, and current condition do not suggest any significant pathology to warrant further testing, continued ED treatment, admission, or surgical evaluation at this point. The vital signs have been stable. The patient does not have uncontrollable pain, intractable vomiting, or other significant symptoms. The patient's condition is stable and appropriate for discharge. The patient will pursue further outpatient evaluation with a primary care physician or other designated or consulting physician as indicated in the discharge instructions. The patient expressed understanding and was agreeable with this plan. Diagnosis Primary Impression: Chest pain, atypical Additional Impressions: Abdominal pain Qualified Codes: R10.13 - Epigastric pain Constipation Qualified Codes: K59.00 - Constipation, unspecified Referrals: Robert Higgins MD call for appointment Primary Care Physician 2 days Patient Instructions: Abdominal Pain (ED), Constipation (ED), General Instructions Additional Instructions: Avoid anti-inflammatory pain medication such as Aleve, ibuprofen as this could worsen your symptoms. Disposition: 01 DISCHARGE HOME Condition: Stable Parvin Hills MD Jun 17, 2017 03:17
[2017-06-17 03:41] LABS: AUTOMATED NEUTROPHIL # 5.7 TH/MM3 (1.8-7.7); BASOPHIL % 0.4 % (0.0-2.0); EOSINOPHIL # 0.1 TH/MM3 (0-0.4); EOSINOPHIL % 0.6 % (0.0-4.0); HEMATOCRIT 38.1 % (39.0-51.0); HEMO FLAGS DIFF FINAL; LYMPH % 29.1 % (9.0-44.0); LYMPHOCYTE # 2.6 TH/MM3 (1.0-4.8); MEAN CELL VOLUME 87.9 FL (80.0-100.0); MEAN CORPUSCULAR HEMOGLOBIN 30.4 PG (27.0-34.0); MEAN CORPUSCULAR HGB CONC 34.6 % (32.0-36.0); MONO % 7.4 % (0.0-8.0); NEUT % 62.5 % (16.0-70.0); PLATELET COUNT 280 TH/MM3 (150-450); RED BLOOD COUNT 4.33 MIL/MM3 (4.50-5.90); WHITE BLOOD COUNT 9.1 TH/MM3 (4.0-11.0)
--- NOTE | 2017-06-17 03:55 | RADRPT ---
EXAM DATE/TIME: 06/17/2017 03:22 [facility] COMPARISON: CHEST SINGLE AP, April 01, 2017, 14:35. INDICATIONS : Chest and upper abdominal pain MEDICAL HISTORY : None. SURGICAL HISTORY : None. ENCOUNTER: Initial ACUITY: 1 day PAIN SCORE: 7/10 LOCATION: Bilateral chest FINDINGS: A single view of the chest demonstrates the lungs to be symmetrically aerated without evidence of mas s, infiltrate or effusion. The cardiomediastinal contours are unremarkable. Osseous structures are intact. CONCLUSION: 1. No acute findings. Skinfold on the left. Garcia Green MD on June 17, 2017 at 3:53 Board Certified Radiologist. This report was verified electronically.
[2017-06-17 03:56] LABS: APTT (PATIENT) 22.9 SEC (24.3-30.1); INTERNATIONAL NORMALIZED RATIO 0.9 RATIO; PROTHROMBIN TIME - PATIENT 10.2 SEC (9.8-11.6)
[2017-06-17 04:03] LABS: ALT (GPT) 19 U/L (12-78); ANION GAP 4 MEQ/L (5-15); AST (GOT) 11 U/L (15-37); BICARBONATE 30.6 MEQ/L (21.0-32.0); BLOOD UREA NITROGEN 10 MG/DL (7-18); CHLORIDE 104 MEQ/L (98-107); GLOMERULAR FILTRATION RATE 102 ML/MIN (>89); MAGNESIUM 2.1 MG/DL (1.5-2.5); POTASSIUM 3.7 MEQ/L (3.5-5.1); SODIUM (NA) 139 MEQ/L (136-145)
[2017-06-17 04:06] LABS: ALKALINE PHOSPHATASE 69 U/L (45-117); CREATINE KINASE 118 U/L (39-308); TOTAL BILIRUBIN ADULT 0.6 MG/DL (0.2-1.0)
[2017-06-17 04:18] LABS: CKMB 1.8 NG/ML (0.5-3.6)
[2017-06-17] MEDS ORDERED: IOHEXOL 350 MG/ML 10 ML VIAL (for RAD DIAG) IVCONTRAST ONE (04:58)
[2017-06-17] MEDS ORDERED: ONDANSETRON HCL 4 MG/2 ML VIAL IV ONE (05:00)
[2017-06-17] MEDS ORDERED: PANTOPRAZOLE SODIUM 40 MG VIAL IV PUSH ONE (05:00)
[2017-06-17] MEDS ORDERED: SODIUM CHLOR 0.9% 1000 ML INJ 1,000 ML IV ONE (05:00)
--- NOTE | 2017-06-17 05:31 | RADRPT ---
EXAM DATE/TIME: 06/17/2017 04:57 [place] COMPARISON: CTA THORACIC ABDOMINAL AORTA W 3D RECON, April 01, 2017, 16:46. INDICATIONS : Abdominal pain. IV CONTRAST: 95 cc Omnipaque 350 (iohexol) IV ORAL CONTRAST: No oral contrast ingested. RADIATION DOSE: 4.52 CTDIvol (mGy) MEDICAL HISTORY : Hypertension. Neuropathy. SURGICAL HISTORY : Vasectomy. ENCOUNTER: Initial ACUITY: 1 day PAIN SCALE: 7/10 LOCATION: Bilateral abdomen TECHNIQUE: Volumetric scanning of the abdomen and pelvis was performed. Using automated exposure control and ad justment of the mA and/or kV according to patient size, radiation dose was kept as low as reasonably achievable to obtain optimal diagnostic quality images. DICOM format image data is available electro nically for review and comparison. FINDINGS: Lung bases are clear. No acute findings in the liver, spleen, adrenals, kidneys or pancreas. No calci fied gallstones or biliary ductal dilatation. Mild constipation. No free air or free fluid. No acute bony abnormalities. CONCLUSION: 1. No acute findings on abdomen and pelvic CT. Mild constipation. Garcia Green MD on June 17, 2017 at 5:25 Board Certified Radiologist. This report was verified electronically.
[2017-06-17] MEDS ORDERED: PROT40TA PO (06:44)
[2017-06-17 07:28] VITALS: BP 176/99
--- NOTE | 2017-06-17 15:57 | EKG ---
Date Performed: 06/17/2017 Time Performed: 03:00:28 PTAGE: 66 years EKG: SINUS TACHYCARDIA MARKED LEFT AXIS DEVIATION PATTERN CONSISTENT WITH PULMONARY DISEASE Poss ible anterior injury, age undetermined. ST-T wave changes are new when compared to previous tracing. Clinical corrolation is suggested. ABNORMAL ECG PREVIOUS TRACING : 04/19/2017 07.34.30 DOCTOR: Gera Lamar Interpretating Date/Time 06/17/2017 15:56:08
== END 2017-06-17 07:30 | disposition home or self-care (01) ==
LOC: NEPE 02:44
DX: R07.89 Other chest pain (principal); R10.13 Epigastric pain; K59.00 Constipation, unspecified; I10 Essential (primary) hypertension; E11.9 Type 2 diabetes mellitus without complications; E78.00 Pure hypercholesterolemia, unspecified; G62.9 Polyneuropathy, unspecified; Z79.4 Long term (current) use of insulin; Z79.899 Other long term (current) drug therapy
CPT/HCPCS: 71010; 74177; 80053; 82550; 82552; 83605; 83690; 83735; 83880; 84484; 85025; 85610; 85730; 86140; 93005; 96361; 96374; 96375; 99285; C9113; J2405; J7030; Q9967